=== PATIENT | female | born 1945 | race Caucasian/White ===

== ENCOUNTER 2016-09-14 12:19 | Outpatient (CLI) | payer MEDICARE, OTHER ==
[2016-09-14 14:55] LABS: #Basophils 0.1 thou/uL (0.0-0.2); #Eosinphils 0.2 thou/uL (0.0-0.7); #Lymphocytes 1.2 thou/uL (1.20-3.40); #Monocytes 0.3 thou/uL (0.11-0.59); #Neutrophils 5.8 thou/uL (1.40-6.50); %Basophils 0.7 % (0.0-1.0); %Eosinophils 2.8 % (0.0-10.0); %Lymphocytes 15.7 % (21.0-51.0); %Monocytes 3.8 % (0.0-10.0); Hematocrit 43.2 % (36.0-47.0); Mean Platelet Volume 6.5 fL (7.4-10.4); Red Blood Cell (RBC) Count 5.04 mill/uL (4.20-5.40); White Blood Cell (WBC) Count 7.6 thou/uL (4.8-10.8)
[2016-09-14 15:04] LABS: Calc. Creatinine Clearance 0 mL/min (70-130); Estimated GFR-MDRD 82
== END 2016-09-14 12:20 | disposition home or self-care (01) ==
LOC: NAV LABSP 12:19
PROVIDERS: ATTEND Family Medicine
DX: T25.321D Burn of third degree of right foot, subsequent encounter (principal); I25.119 Atherosclerotic heart disease of native coronary artery with unspecified angina pectoris
CPT/HCPCS: 82565; 85025; 85652; 86140

== ENCOUNTER 2016-09-19 15:51 | Outpatient (CLI) | payer MEDICARE, OTHER ==
[2016-09-19 17:30] LABS: ALT (SGPT) 25 U/L (0-55); AST (SGOT) 26 U/L (5-34); Alkaline Phosphatase 102 U/L (40-150); Anion Gap 17 mmol/L (10-20); BUN (Urea Nitrogen) 17 mg/dL (9.8-20.1); Bilirubin, Total 0.4 mg/dL (0.2-1.2); Calc. Creatinine Clearance 0 mL/min (70-130); Calcium 9.4 mg/dL (7.8-10.44); Carbon Dioxide 20 mmol/L (23-31); Chloride 109 mmol/L (98-107); Estimated GFR-MDRD 73; Globulin 3.2 g/dL (2.4-3.5); Protein, Total 7.3 g/dL (5.8-8.1)
== END 2016-09-19 15:52 | disposition home or self-care (01) ==
LOC: NAV LABSP 15:51
PROVIDERS: ATTEND Internal Medicine
DX: I25.119 Atherosclerotic heart disease of native coronary artery with unspecified angina pectoris (principal)
CPT/HCPCS: 80053

== ENCOUNTER 2016-10-16 06:12 | Emergency (ER) | payer MEDICARE, OTHER ==
[2016-10-16] MEDS ORDERED: Ketorolac Tromethamine 60 MG/2 ML VIAL ONE (06:41)
[2016-10-16] MEDS ORDERED: Acetaminophen 500 MG TAB ONE (07:17)
== END 2016-10-16 07:30 | disposition home or self-care (01) ==
LOC: NAV ERS 06:12
DX: M79.672 Pain in left foot (principal); I10 Essential (primary) hypertension; I25.10 Atherosclerotic heart disease of native coronary artery without angina pectoris; F32.9 Major depressive disorder, single episode, unspecified; F41.9 Anxiety disorder, unspecified; Z86.718 Personal history of other venous thrombosis and embolism; Z86.73 Personal history of transient ischemic attack (TIA), and cerebral infarction without residual deficits; Z79.82 Long term (current) use of aspirin; Z79.891 Long term (current) use of opiate analgesic; Z79.899 Other long term (current) drug therapy
CPT/HCPCS: 96372; J1885

== ENCOUNTER 2016-10-27 12:17 | Emergency (ER) | payer MEDICARE, OTHER ==
[2016-10-27 12:34] LABS: #Basophils 0.1 thou/uL (0.0-0.2); #Eosinphils 0.2 thou/uL (0.0-0.7); #Lymphocytes 0.9 thou/uL (1.20-3.40); #Monocytes 0.5 thou/uL (0.11-0.59); #Neutrophils 5.4 thou/uL (1.40-6.50); %Basophils 1.1 % (0.0-1.0); %Eosinophils 2.2 % (0.0-10.0); %Lymphocytes 12.3 % (21.0-51.0); %Monocytes 7.2 % (0.0-10.0); Hematocrit 45.4 % (36.0-47.0); Mean Platelet Volume 6.7 fL (7.4-10.4); Red Blood Cell (RBC) Count 5.28 mill/uL (4.20-5.40)
[2016-10-27 12:46] LABS: ALT (SGPT) 32 U/L (0-55); AST (SGOT) 21 U/L (5-34); Alkaline Phosphatase 104 U/L (40-150); Anion Gap 15 mmol/L (10-20); BUN (Urea Nitrogen) 16 mg/dL (9.8-20.1); Bilirubin, Total 0.6 mg/dL (0.2-1.2); Calc. Creatinine Clearance 0 mL/min (70-130); Calcium 9.3 mg/dL (7.8-10.44); Carbon Dioxide 22 mmol/L (23-31); Chloride 106 mmol/L (98-107); Estimated GFR-MDRD 72; Globulin 3.1 g/dL (2.4-3.5); Protein, Total 6.8 g/dL (5.8-8.1)
[2016-10-27 12:50] LABS: Troponin I Less than 0.010 ng/mL (< 0.028)
[2016-10-27 12:54] LABS: PTT 29.9 SEC (22.9-36.1); Prothrombin Time 12.6 SEC (12.0-14.7)
--- NOTE | 2016-10-27 13:25 | RAD ---
PORTABLE CHEST 1 VIEW: Date: 10/27/16 Time: 1300 hours HISTORY: Right facial droop, chest pain. FINDINGS/IMPRESSION: Comparison made with exam of 01/04/16. The heart size is enlarged. The aorta is tortuous. There is mild pulmonary vascular congestion witho ut confluent areas of consolidation, pneumothoraces, or large effusions. Right-sided AICD remains in place. POS: [facility]
[2016-10-27 13:48] LABS: Bilirubin Negative (Negative); Blood, Urine Negative (Negative); Glucose, Urine (Dipstick) 500 mg/dL (Negative); Ketone, Urine Negative (Negative); Nitrite Negative (Negative); Protein, Urine (Dipstick) Negative (Neg-Trace); Urobilinogen 0.2 mg/dL (0.2-1.0)
[2016-10-27] MEDS ORDERED: Nitroglycerin 2% Ointment 1 INCH/1 GM Packet ONE (14:04)
--- NOTE | 2016-10-30 08:01 | CT ---
EXAM: CT BRAIN WITHOUT CONTRAST: HISTORY: Left-sided weakness. Stroke alert. Symptoms began 30 minutes ago. COMPARISON: 12/26/15. TECHNIQUE: Noncontrast head CT is performed from the skull base to the skull vertex. FINDINGS: There are stable postsurgical changes involving the calvarium near the vertex. Underlying brain par enchyma demonstrates malacic change involving the left cerebrum. White matter hypodensities due to chronic small-vessel ischemic changes are noted. Stable configuration of the ventricular system. N o midline shift. Basilar cisterns are patent. No parenchymal hemorrhage. No extraaxial hematoma. Cortical tadeo-white matter differentiation is p reserved with the exception of the left cerebrum near the vertex. Adequate aeration of the mastoid air cells. There is left ethmoid air cell and sphenoid sinus mucos al thickening. Stable hypoattenuation involving the left cardiac nucleus as well as the white matte r anterior to the left caudate nucleus. Remote lacunar infarct involving the anterolateral right th alamus. IMPRESSION: No acute intracranial process. Results of the study discussed with Dr. Gerber Matthews 10/27/16 at 12:29 p.m. CODE CR POS: [facility]
== END 2016-10-27 17:17 | disposition short-term general hospital (02) ==
LOC: NAV ERS 12:17
DX: I11.0 Hypertensive heart disease with heart failure (principal); I50.9 Heart failure, unspecified; F32.9 Major depressive disorder, single episode, unspecified; F41.9 Anxiety disorder, unspecified; Z86.718 Personal history of other venous thrombosis and embolism; Z86.73 Personal history of transient ischemic attack (TIA), and cerebral infarction without residual deficits; Z79.82 Long term (current) use of aspirin; Z79.891 Long term (current) use of opiate analgesic; Z79.899 Other long term (current) drug therapy
CPT/HCPCS: 36415; 36416; 70450; 71010; 80053; 81003; 82553; 83880; 84484; 85025; 85610; 85730; 93005; A4353

== ENCOUNTER 2016-11-12 11:50 | Emergency (ER) | payer MEDICARE, OTHER ==
[2016-11-12] MEDS ORDERED: Lidocaine 1% 20 ML MDV ONE (12:27)
--- NOTE | 2016-11-12 13:35 | RAD ---
TOES RIGHT FOOT 3 VIEWS: Date: 11/12/16 HISTORY: laceration to toes FINDINGS: The metatarsals appear intact. There is mild DJD at the first MTP joint. Other MTP joints are unrema rkable. There is subluxation of the PIP joint of the fifth toe. No acute fracture identified. IMPRESSION: 1. Subluxation/mild dislocation at the PIP joint of the fifth toe. 2. No acute fracture identified. POS: [facility]
[2016-11-12] MEDS ORDERED: Adacel (T-DAP) 0.5 ML VIAL ONE (13:37)
== END 2016-11-12 13:53 | disposition home or self-care (01) ==
LOC: NAV ERS 11:50
DX: S91.201A Unspecified open wound of right great toe with damage to nail, initial encounter (principal); I25.10 Atherosclerotic heart disease of native coronary artery without angina pectoris; I10 Essential (primary) hypertension; F41.9 Anxiety disorder, unspecified; F32.9 Major depressive disorder, single episode, unspecified; Z79.82 Long term (current) use of aspirin; Z79.899 Other long term (current) drug therapy; X58.XXXA Exposure to other specified factors, initial encounter
CPT/HCPCS: 11750; 90471; 90715; J2001

== ENCOUNTER 2016-11-13 12:37 | Outpatient (CLI) | payer MEDICARE, OTHER ==
[2016-11-13 14:40] LABS: Bilirubin Negative (Negative); Blood, Urine Negative (Negative); Glucose, Urine (Dipstick) 100 mg/dL (Negative); Ketone, Urine Negative (Negative); Nitrite Negative (Negative); Protein, Urine (Dipstick) Negative (Neg-Trace); Urobilinogen 0.2 mg/dL (0.2-1.0)
[2016-11-13 14:47] LABS: Bacteria/HPF 3+ HPF (None Seen); RBC/HPF None Seen HPF (0-3)
== END 2016-11-13 12:38 | disposition home or self-care (01) ==
LOC: NAV LABSP 12:37
PROVIDERS: ATTEND Internal Medicine
DX: N39.0 Urinary tract infection, site not specified (principal)
CPT/HCPCS: 81001; 87077; 87086

== ENCOUNTER 2017-01-12 10:03 | Outpatient (CLI) | payer MEDICARE, OTHER ==
[2017-01-12 11:53] LABS: Blood, Urine Small (Negative); Clarity Clear (Clear); Glucose, Urine (Dipstick) 500 mg/dL (Negative); Leukocyte Negative (Negative); Nitrite Positive (Negative); Protein, Urine (Dipstick) 30 mg/dL (Neg-Trace); Specific Gravity, Urine 1.025 (1.005-1.030); Urobilinogen 0.2 mg/dL (0.2-1.0); pH, Urine 5.5 (5.0-9.0)
[2017-01-12 12:17] LABS: Bilirubin Negative (Negative); Icto Negative (Negative)
[2017-01-12 12:19] LABS: Bacteria/HPF 1+ HPF (None Seen); Other Microscopic Description NO; RBC/HPF 0-3 HPF (0-3); Squamous Epithelial 0-3 HPF (0-3); WBC/HPF 0-3 HPF (0-3)
== END 2017-01-12 10:04 | disposition home or self-care (01) ==
LOC: NAV LABSP 10:03
PROVIDERS: ATTEND Internal Medicine
DX: N39.0 Urinary tract infection, site not specified (principal)
CPT/HCPCS: 81001; 87077; 87086; 87186

== ENCOUNTER 2017-05-02 12:05 | Outpatient (CLI) | payer MEDICARE, OTHER ==
[2017-05-02 13:08] LABS: Bilirubin Negative (Negative); Blood, Urine Small (Negative); Clarity Cloudy (Clear); Glucose, Urine (Dipstick) >=1000 mg/dL (Negative); Leukocyte Small (Negative); Nitrite Negative (Negative); Protein, Urine (Dipstick) Negative (Neg-Trace); Urobilinogen 0.2 mg/dL (0.2-1.0); pH, Urine 5.5 (5.0-9.0)
[2017-05-02 13:15] LABS: Bacteria/HPF 2+ HPF (None Seen); Squamous Epithelial 0-3 HPF (0-3)
== END 2017-05-02 12:06 | disposition home or self-care (01) ==
LOC: NAV LABSP 12:05
PROVIDERS: ATTEND Internal Medicine
DX: N39.0 Urinary tract infection, site not specified (principal)
CPT/HCPCS: 81001; 87077; 87086; 87186

== ENCOUNTER 2017-07-02 12:28 | Outpatient (CLI) | payer MEDICARE, OTHER ==
--- NOTE | 2017-07-02 16:01 | RAD ---
RIGHT SHOULDER THREE VIEWS: History: 71-year-old female with right shoulder pain. Comparison: 09-23-15 FINDINGS: Stable deformity of the humeral neck, evidence for a prior fracture. Several ossific foci probably w ithin the axillary pouch region of the joint. These are most consistent with synovial osteochondroma . They appear to be slightly larger than on the prior 2016 study. No acute fracture or dislocation. IMPRESSION: Degenerative changes without fracture or dislocation. Deformity of the humeral neck probably related to old trauma. 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 No acute process. POS: [facility]
== END 2017-07-02 12:29 | disposition home or self-care (01) ==
LOC: NAV RAD 12:28
PROVIDERS: ATTEND Physical Medicine & Rehabilitation
DX: M25.511 Pain in right shoulder (principal); M19.90 Unspecified osteoarthritis, unspecified site; D21.9 Benign neoplasm of connective and other soft tissue, unspecified

== ENCOUNTER 2017-11-08 11:55 | Emergency (ER) | payer MEDICARE ==
[2017-11-08 12:16] LABS: #Basophils 0.1 thou/uL (0.0-0.2); #Eosinphils 0.2 thou/uL (0.0-0.7); #Lymphocytes 0.9 thou/uL (1.20-3.40); #Monocytes 0.5 thou/uL (0.11-0.59); %Basophils 0.8 % (0.0-1.0); %Eosinophils 2.1 % (0.0-10.0); %Lymphocytes 12.3 % (21.0-51.0); %Neutrophils 78.8 % (42.0-75.0); Hemoglobin 14.2 g/dL (12.0-16.0); Mean Corpuscular HGB CONC 33.1 g/dL (32.0-36.0); Mean Corpuscular Hemoglobin 26.9 pg (27.0-31.0); Mean Corpuscular Volume 81.3 fl (81.0-99.0); Mean Platelet Volume 9.4 fL (7.4-10.4); Platelet Count 174 thou/uL (130-400); RBC Distribution Width 14.2 % (11.5-14.5); Red Blood Cell (RBC) Count 5.27 mill/uL (4.20-5.40); White Blood Cell (WBC) Count 7.6 thou/uL (4.8-10.8)
[2017-11-08 12:29] LABS: Troponin I Less than 0.010 ng/mL (< 0.028)
[2017-11-08 12:30] LABS: ALT (SGPT) 28 U/L (8-55); AST (SGOT) 24 U/L (5-34); Alkaline Phosphatase 100 U/L (40-150); Anion Gap 14 mmol/L (10-20); BUN (Urea Nitrogen) 14 mg/dL (9.8-20.1); Bilirubin, Total 0.4 mg/dL (0.2-1.2); Calc. Creatinine Clearance 0 mL/min (70-130); Calcium 9.5 mg/dL (7.8-10.44); Carbon Dioxide 25 mmol/L (23-31); Chloride 108 mmol/L (98-107); Estimated GFR-MDRD 66; Globulin 2.8 g/dL (2.4-3.5); Glucose 79 mg/dL (83-110); Potassium 4.2 mmol/L (3.5-5.1); Protein, Total 6.8 g/dL (6.0-8.3); Sodium 143 mmol/L (136-145)
[2017-11-08 12:35] LABS: CKMB 8.5 ng/mL (0-6.6)
[2017-11-08 12:44] LABS: Bilirubin Negative (Negative); Blood, Urine Negative (Negative); Clarity Clear (Clear); Glucose, Urine (Dipstick) 500 mg/dL (Negative); Leukocyte Trace (Negative); Nitrite Negative (Negative); Protein, Urine (Dipstick) Negative (Neg-Trace); Urobilinogen 0.2 mg/dL (0.2-1.0)
[2017-11-08 12:56] LABS: Bacteria/HPF 3+ HPF (None Seen); RBC/HPF 0-3 HPF (0-3); Squamous Epithelial 0-3 HPF (0-3)
[2017-11-08 12:57] LABS: Amphetamine Not Detected (NotDetected); Barbiturates Screen Not Detected (NotDetected); Benzodiazepine Screen Not Detected (NotDetected); Cocaine Metabolite Screen Not Detected (NotDetected); Medtox Control Line Valid? VALID (VALID); Methadone Not Detected (NotDetected); Methamphetamine Not Detected (NotDetected); Opiate Screen Not Detected (NotDetected); Oxycodone Screen Not Detected (NotDetected); Phencyclidine (PCP) Not Detected (NotDetected); THC/Cannabinoid Screen Not Detected (NotDetected); Tricyclic Screen Not Detected (NotDetected)
--- NOTE | 2017-11-08 13:09 | RAD ---
PORTABLE CHEST 1 VIEW: Date: 11/08/17 Time: 1219 hours HISTORY: Chest pain. FINDINGS/IMPRESSION: Comparison made with exam of 02/15/17. Right-sided pacemaker device remains in place. The heart is enlarged. There is mild prominence of pul monary vascularity. No lobar consolidation, pneumothoraces, or large effusions are seen. POS: [facility]
--- NOTE | 2017-11-08 13:54 | CT ---
CT BRAIN WITHOUT CONTRAST: HISTORY: Stroke protocol, weakness all over. FINDINGS: Comparison is made with the exam of 02/16/17. Encephalomalacia in the left frontoparietal lobe with adjacent postop changes in the calvarium, stabl e hypodensity in the anterior left lentiform nucleus, changes of chronic small-vessel ischemic diseas e are stable. Ventricular size is stable and the basilar cisterns are patent. No evidence of acute infarct, midline shift, or abnormal extraaxial fluid collections is seen. There is mucosal disease i n the left posterior ethmoid and left sphenoid sinuses. IMPRESSION: Stable exam. No CT evidence of acute intracranial process. Discussed over the telephone with ER physician, Dr. Doni Ash, at 12:15 p.m. CODE CR POS: [facility]
[2017-11-08] MEDS ORDERED: Dextrose 5 % And 0.9 % NaCl 1,000 ML ONE (14:28)
== END 2017-11-08 15:08 | disposition short-term general hospital (02) ==
LOC: NAV ERS 11:55
DX: R41.82 Altered mental status, unspecified (principal); R53.1 Weakness; G89.29 Other chronic pain; M54.9 Dorsalgia, unspecified; I10 Essential (primary) hypertension; G40.909 Epilepsy, unspecified, not intractable, without status epilepticus; F41.9 Anxiety disorder, unspecified; F32.9 Major depressive disorder, single episode, unspecified; Z79.82 Long term (current) use of aspirin; Z79.899 Other long term (current) drug therapy; Z86.73 Personal history of transient ischemic attack (TIA), and cerebral infarction without residual deficits
CPT/HCPCS: 36416; 51702; 70450; 71045; 80053; 80306; 81003; 81015; 82553; 83880; 84484; 85025; 85379; 93005; 96360; A4353; J7042

== ENCOUNTER 2017-11-19 11:13 | Emergency (ER) | payer MEDICARE ==
--- NOTE | 2017-11-19 13:09 | RAD ---
RIGHT HAND 3 VIEWS: HISTORY: Bruise over the 3rd, 4th, and 5th metatarsal. Pain. COMPARISON: None. FINDINGS: There is dorsal soft tissue swelling. No evidence of fracture. 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 IMPRESSION: Soft tissue swelling, without evidence of fracture. POS: [facility]
== END 2017-11-19 13:10 | disposition home or self-care (01) ==
LOC: NAV ERS 11:13
DX: S60.221A Contusion of right hand, initial encounter (principal); I25.10 Atherosclerotic heart disease of native coronary artery without angina pectoris; I10 Essential (primary) hypertension; I69.351 Hemiplegia and hemiparesis following cerebral infarction affecting right dominant side; F41.9 Anxiety disorder, unspecified; F32.9 Major depressive disorder, single episode, unspecified; G62.9 Polyneuropathy, unspecified; Z79.82 Long term (current) use of aspirin; Z79.899 Other long term (current) drug therapy; Z79.02 Long term (current) use of antithrombotics/antiplatelets; W22.8XXA Striking against or struck by other objects, initial encounter

== ENCOUNTER 2018-01-21 12:01 | Emergency (ER) | payer MEDICARE ==
[2018-01-21] MEDS ORDERED: traMADol HCl 50 MG TAB ONE (12:52)
[2018-01-21] MEDS ORDERED: Ondansetron ODT 4 MG TAB ONE (12:55)
--- NOTE | 2018-01-21 14:11 | CT ---
CT HEAD NONCONTRAST: HISTORY: Fall, headache. COMPARISON: 11/08/17. FINDINGS: There is prominence of the ventricular system, stable. Stable postsurgical changes of the calvarium are seen. Multifocal white matter hypodensity remains, similar in appearance. There is no intracran ial hemorrhage, mass effect, or new midline shift. IMPRESSION: Stable-appearing noncontrast head CT exam, without acute intracranial hemorrhage or mass effect evide nt. POS: [facility]
--- NOTE | 2018-01-21 14:21 | CT ---
NONCONTRAST CT CERVICAL SPINE: DATE: 01/21/18. HISTORY: Headache after falling 3 days ago. Head and neck injury. COMPARISON: 03/11/13. FINDINGS: Again noted are hypodense nodules within the right lobe of the thyroid gland with associated calcific ations again seen in the right lobe of the thyroid gland. Vascular calcifications are seen in the carotid arteries. Prevertebral soft tissues are within normal limits. Multilevel degenerative changes are seen in the cervical spine. There is trace anterolisthesis of C6 on C7 which is an interval change from the prior study, but these findings are probably related to p rominent facet degenerative changes at this level. No additional level of subluxation is seen. Ther e is no evidence of a fracture. Prominent facet degenerative changes are seen at multiple levels. There is severe right-sided neural foraminal narrowing at the C4-5 level and severe left-sided neural foraminal narrowing at the C5-6 l evel related to posterior osteophyte formation and facet degenerative changes. Lung apices are clear aside from mild volume loss. Cardiac pace making as well as AICD leads are par tially imaged in the region of the right subclavian vein. There is mucosal thickening with almost complete opacification of the left maxillary antrum. Increas ed density is seen within the region of the opacification probably related to either inspissated secr etions or fungal infection. Mastoid air cells are clear. IMPRESSION: 1. Multilevel degenerative changes seen throughout the cervical spine which have progressed from the prior study in 2013. No acute fracture visualized. 2. Trace anterolisthesis of C6 on C7 likely attributable to the facet degenerative changes at this l evel. 3. Hypodense nodules right lobe of the thyroid gland with associated calcifications. This was also present on the prior study in 2012. 4. Degenerative changes involving the temporomandibular joints bilaterally. POS: [facility]
--- NOTE | 2018-01-21 14:52 | RAD ---
3 VIEWS RIGHT SHOULDER: Date: 01/21/18 HISTORY: Pain. Injury. COMPARISON: 07/02/17. FINDINGS: Stable loose body fragments. Stable degenerative change. No fracture. No dislocation. Evidence of rem ote injury in the humeral neck. IMPRESSION: 1. Stable degenerative changes without fracture or dislocation. Synovial osteochondroma unchanged. 2. Chronic changes involving the right humeral neck are noted. POS: [facility]
== END 2018-01-21 13:53 | disposition home or self-care (01) ==
LOC: NAV ERS 12:01
DX: S16.1XXA Strain of muscle, fascia and tendon at neck level, initial encounter (principal); S00.03XA Contusion of scalp, initial encounter; S40.011A Contusion of right shoulder, initial encounter; I25.10 Atherosclerotic heart disease of native coronary artery without angina pectoris; I10 Essential (primary) hypertension; Z86.73 Personal history of transient ischemic attack (TIA), and cerebral infarction without residual deficits; F41.9 Anxiety disorder, unspecified; F32.9 Major depressive disorder, single episode, unspecified; Z79.82 Long term (current) use of aspirin; Z79.899 Other long term (current) drug therapy; W19.XXXA Unspecified fall, initial encounter
CPT/HCPCS: 70450; 72125; Q0162

== ENCOUNTER 2018-03-25 10:07 | Emergency (ER) | payer MEDICARE ==
[2018-03-25 11:43] LABS: Prothrombin Time 13.3 SEC (12.0-14.7)
[2018-03-25 11:46] LABS: #Basophils 0.1 thou/uL (0.0-0.2); #Eosinphils 0.2 thou/uL (0.0-0.7); #Lymphocytes 0.9 thou/uL (1.20-3.40); #Monocytes 0.5 thou/uL (0.11-0.59); #Neutrophils 4.8 thou/uL (1.40-6.50); %Basophils 1.4 % (0.0-1.0); %Eosinophils 3.1 % (0.0-10.0); %Lymphocytes 13.5 % (21.0-51.0); %Monocytes 7.5 % (0.0-10.0); %Neutrophils 74.6 % (42.0-75.0); Hemoglobin 13.3 g/dL (12.0-16.0); Mean Corpuscular HGB CONC 32.6 g/dL (32.0-36.0); Mean Corpuscular Hemoglobin 26.8 pg (27.0-31.0); Mean Corpuscular Volume 82.3 fL (78.0-98.0); Mean Platelet Volume 7.1 fL (7.4-10.4); Platelet Count 196 thou/uL (130-400); Red Blood Cell (RBC) Count 4.97 mill/uL (4.20-5.40); White Blood Cell (WBC) Count 6.4 thou/uL (4.8-10.8)
[2018-03-25 11:49] LABS: Bilirubin Negative (Negative); Blood, Urine Negative (Negative); Clarity Clear (Clear); Glucose, Urine (Dipstick) 500 mg/dL (Negative); Leukocyte Negative (Negative); Nitrite Negative (Negative); Protein, Urine (Dipstick) Negative (Neg-Trace); Urobilinogen 0.2 mg/dL (0.2-1.0); pH, Urine 5.5 (5.0-9.0)
[2018-03-25 11:50] LABS: Specific Gravity, Urine 1.033 (1.002-1.036)
[2018-03-25 11:51] LABS: ALT (SGPT) 37 U/L (8-55); AST (SGOT) 24 U/L (5-34); Albumin 3.9 g/dL (3.4-4.8); Alkaline Phosphatase 105 U/L (40-150); Anion Gap 15 mmol/L (10-20); BUN (Urea Nitrogen) 12 mg/dL (9.8-20.1); Bilirubin, Total 0.3 mg/dL (0.2-1.2); Calc. Creatinine Clearance 0 mL/min (70-130); Calcium 9.7 mg/dL (7.8-10.44); Carbon Dioxide 22 mmol/L (23-31); Chloride 109 mmol/L (98-107); Estimated GFR-MDRD 81; Globulin 2.8 g/dL (2.4-3.5); Glucose 83 mg/dL (83-110); Potassium 3.9 mmol/L (3.5-5.1); Protein, Total 6.7 g/dL (6.0-8.3); Sodium 142 mmol/L (136-145)
[2018-03-25 11:52] LABS: PTT 32.6 SEC (22.9-36.1)
== END 2018-03-25 12:20 | disposition home or self-care (01) ==
LOC: NAV ERS 10:07
DX: K92.2 Gastrointestinal hemorrhage, unspecified (principal); I10 Essential (primary) hypertension; F32.9 Major depressive disorder, single episode, unspecified; F41.9 Anxiety disorder, unspecified; Z79.899 Other long term (current) drug therapy
CPT/HCPCS: 51701; 80053; 81003; 82274; 85025; 85610; 85730; A4353

== ENCOUNTER 2018-07-07 10:32 | Emergency (ER) | payer MEDICARE | END 2018-07-07 11:30 | disposition home or self-care (01) | LOC: NAV ERS 10:32 | DX: S81.011A Laceration without foreign body, right knee, initial encounter (principal); I10 Essential (primary) hypertension; F41.9 Anxiety disorder, unspecified; I25.10 Atherosclerotic heart disease of native coronary artery without angina pectoris; F32.9 Major depressive disorder, single episode, unspecified; X58.XXXA Exposure to other specified factors, initial encounter | CPT/HCPCS: 12001 ==

== ENCOUNTER 2018-07-16 13:43 | Emergency (ER) | payer MEDICARE ==
[2018-07-16 14:22] LABS: #Basophils 0.1 thou/uL (0.0-0.2); #Eosinphils 0.1 thou/uL (0.0-0.7); #Monocytes 0.4 thou/uL (0.11-0.59); #Neutrophils 4.6 thou/uL (1.40-6.50); %Basophils 0.9 % (0.0-1.0); %Eosinophils 2.3 % (0.0-10.0); %Lymphocytes 16.1 % (21.0-51.0); %Monocytes 6.9 % (0.0-10.0); %Neutrophils 73.9 % (42.0-75.0); Hemoglobin 13.6 g/dL (12.0-16.0); Mean Corpuscular HGB CONC 31.2 g/dL (32.0-36.0); Mean Corpuscular Hemoglobin 26.7 pg (27.0-31.0); Mean Corpuscular Volume 85.6 fL (78.0-98.0); Mean Platelet Volume 7.2 fL (7.4-10.4); Platelet Count 215 thou/uL (130-400); RBC Distribution Width 14.2 % (11.5-14.5); Red Blood Cell (RBC) Count 5.07 mill/uL (4.20-5.40); White Blood Cell (WBC) Count 6.2 thou/uL (4.8-10.8)
[2018-07-16 14:36] LABS: ALT (SGPT) 23 U/L (8-55); AST (SGOT) 25 U/L (5-34); Albumin 4.2 g/dL (3.4-4.8); Alkaline Phosphatase 114 U/L (40-150); Anion Gap 15 mmol/L (10-20); BUN (Urea Nitrogen) 14 mg/dL (9.8-20.1); Bilirubin, Total 0.4 mg/dL (0.2-1.2); Calc. Creatinine Clearance 0 mL/min (70-130); Calcium 9.9 mg/dL (7.8-10.44); Carbon Dioxide 23 mmol/L (23-31); Chloride 110 mmol/L (98-107); Estimated GFR-MDRD 69; Globulin 2.8 g/dL (2.4-3.5); Glucose 115 mg/dL (83-110); Potassium 4.2 mmol/L (3.5-5.1); Sodium 144 mmol/L (136-145)
[2018-07-16 14:38] LABS: Troponin I Less than 0.010 ng/mL (< 0.028)
[2018-07-16 14:40] LABS: Bilirubin Negative (Negative); Blood, Urine Negative (Negative); Clarity Clear (Clear); Glucose, Urine (Dipstick) >=1000 mg/dL (Negative); Leukocyte Negative (Negative); Nitrite Negative (Negative); Protein, Urine (Dipstick) Negative (Neg-Trace); Specific Gravity, Urine 1.015 (1.005-1.030); Urobilinogen 0.2 mg/dL (0.2-1.0); pH, Urine 5.5 (5.0-9.0)
[2018-07-16] MEDS ORDERED: traMADol HCl 50 MG TAB ONE (14:50)
== END 2018-07-16 16:41 | disposition home or self-care (01) ==
LOC: NAV ERS 13:43
DX: R56.9 Unspecified convulsions (principal); I25.10 Atherosclerotic heart disease of native coronary artery without angina pectoris; I10 Essential (primary) hypertension; F41.9 Anxiety disorder, unspecified; F32.9 Major depressive disorder, single episode, unspecified; Z86.73 Personal history of transient ischemic attack (TIA), and cerebral infarction without residual deficits; Z86.718 Personal history of other venous thrombosis and embolism; Z79.82 Long term (current) use of aspirin; Z79.899 Other long term (current) drug therapy
CPT/HCPCS: 51701; 80053; 81003; 82553; 84484; 85025; A4353

== ENCOUNTER 2018-08-31 11:50 | Emergency (ER) | payer MEDICARE ==
[2018-08-31] MEDS ORDERED: traMADol HCl 50 MG TAB ONE (12:11)
--- NOTE | 2018-08-31 14:32 | RAD ---
RIGHT HIP 2 VIEWS: HISTORY: Right hip pain. FINDINGS: Total hip prosthesis is in place. NO perihardware lucency. No acute fracture or dislocation. IMPRESSION: Right hip prosthesis. No acute osseous abnormalities are demonstrated. POS: [facility]
--- NOTE | 2018-08-31 14:57 | RAD ---
RIGHT KNEE 4 VIEWS: HISTORY: Right knee pain. FINDINGS: Total knee prosthesis is in place. No perihardware lucency. Osseous structures are demineralized. No acute fracture, dislocation, or fluid distention of the suprapatellar bursa. Calcification overli es the arterial structures. IMPRESSION: 1. Right knee prosthesis. No acute osseous abnormalities are demonstrated. 2. Osteoporosis. 3. Atherosclerosis. POS: [facility]
== END 2018-08-31 14:03 | disposition home or self-care (01) ==
LOC: NAV ERS 11:50
DX: S80.01XA Contusion of right knee, initial encounter (principal); F41.9 Anxiety disorder, unspecified; F32.9 Major depressive disorder, single episode, unspecified; I25.10 Atherosclerotic heart disease of native coronary artery without angina pectoris; I10 Essential (primary) hypertension; Z86.73 Personal history of transient ischemic attack (TIA), and cerebral infarction without residual deficits; Z86.718 Personal history of other venous thrombosis and embolism; Z79.82 Long term (current) use of aspirin; Z79.899 Other long term (current) drug therapy; W19.XXXA Unspecified fall, initial encounter

== ENCOUNTER 2018-12-19 16:25 | Outpatient (CLI) | payer MEDICARE ==
[2018-12-19 21:34] LABS: Bilirubin Negative (Negative); Blood, Urine Negative (Negative); Clarity CLEAR (Clear); Glucose, Urine (Dipstick) 500 mg/dL (Negative); Leukocyte Trace (Negative); Nitrite Negative (Negative); Protein, Urine (Dipstick) Negative (Neg-Trace); Specific Gravity, Urine 1.012 (1.002-1.036); Urobilinogen 0.2 mg/dL (0.2-1.0); pH, Urine 5.5 (5.0-9.0)
[2018-12-19 22:00] LABS: Bacteria/HPF None Seen HPF (None Seen); Hyaline Casts/LPF 0-3 HYALINE CAST LPF (0-3 Hyaline); RBC/HPF 0-3 HPF (0-3); Squamous Epithelial 0-3 HPF (0-3)
== END 2018-12-19 16:26 | disposition home or self-care (01) ==
LOC: NAV LAB 16:25
PROVIDERS: ATTEND Internal Medicine
DX: I11.0 Hypertensive heart disease with heart failure (principal); I50.9 Heart failure, unspecified
CPT/HCPCS: 81003; 81015

== ENCOUNTER 2020-03-06 13:43 | Emergency (ER) | payer MEDICARE ==
[2020-03-06 13:57] LABS: #Basophils 0.1 thou/uL (0.0-0.2); #Eosinphils 0.2 thou/uL (0.0-0.7); #Lymphocytes 1.2 thou/uL (1.20-3.40); #Monocytes 0.5 thou/uL (0.11-0.59); %Basophils 0.7 % (0.0-1.0); %Eosinophils 2.7 % (0.0-10.0); %Lymphocytes 15.1 % (21.0-51.0); %Monocytes 6.3 % (0.0-10.0); %Neutrophils 75.2 % (42.0-75.0); Hemoglobin 14.1 g/dL (12.0-16.0); Mean Corpuscular HGB CONC 31.4 g/dL (32.0-36.0); Mean Corpuscular Hemoglobin 27.4 pg (27.0-31.0); Mean Corpuscular Volume 87.4 fL (78.0-98.0); Mean Platelet Volume 6.9 fL (7.4-10.4); Platelet Count 217 thou/uL (130-400); RBC Distribution Width 12.9 % (11.5-14.5); Red Blood Cell (RBC) Count 5.12 mill/uL (4.20-5.40)
[2020-03-06 14:06] LABS: PTT 32.6 sec (22.9-36.1); Prothrombin Time 13.4 sec (12.0-14.7)
[2020-03-06 14:14] LABS: ALT (SGPT) 28 U/L (8-55); AST (SGOT) 25 U/L (5-34); Albumin 3.9 g/dL (3.4-4.8); Alkaline Phosphatase 155 U/L (40-110); Anion Gap 19 mmol/L (10-20); BUN (Urea Nitrogen) 15 mg/dL (9.8-20.1); Bilirubin, Total 0.3 mg/dL (0.2-1.2); Calc. Creatinine Clearance 0 mL/min (70-130); Calcium 9.1 mg/dL (7.8-10.44); Carbon Dioxide 21 mmol/L (23-31); Chloride 104 mmol/L (98-107); Estimated GFR-MDRD 50; Glucose 108 mg/dL (83-110); Potassium 4.2 mmol/L (3.5-5.1); Protein, Total 6.9 g/dL (6.0-8.3); Sodium 140 mmol/L (136-145)
--- NOTE | 2020-03-06 15:19 | CT ---
CT BRAIN 03/06/20 PROVIDED CLINICAL HISTORY: Altered mental status, slurred speech. FINDINGS: Comparison 02/16/17. The ventricular system is unchanged in size and morphology, somewhat conspicuous in terms of size wit h a degree of sulcal prominence. Encephalomalacia involving the left frontoparietal region near the v ertex with associated postoperative change involving the adjacent skull redemonstrated. Chronic micro vascular ischemic changes appear similar to prior. There is no intracranial hemorrhage or mass effect apparent. Partial opacification of the sphenoid sinus. The extracranial soft tissues and osseous str uctures appear otherwise unremarkable. IMPRESSION: No evidence for intracranial hemorrhage or mass effect. Findings communicated to Dr. Herring via telep sonia [id number], 03/06/20. POS: [facility]
[2020-03-06] MEDS ORDERED: Lorazepam 2 MG/ML VIAL ONE (15:52)
== END 2020-03-06 16:33 | disposition short-term general hospital (02) ==
LOC: NAV ERS 13:43
DX: R41.82 Altered mental status, unspecified (principal); R47.81 Slurred speech; Z86.73 Personal history of transient ischemic attack (TIA), and cerebral infarction without residual deficits; G62.9 Polyneuropathy, unspecified; I10 Essential (primary) hypertension; F32.9 Major depressive disorder, single episode, unspecified; F41.9 Anxiety disorder, unspecified; Z79.82 Long term (current) use of aspirin; Z79.899 Other long term (current) drug therapy
CPT/HCPCS: 70450; 80053; 84484; 85025; 85610; 85730; 93005; 94760; 96374; J2060

== ENCOUNTER 2020-04-04 15:15 | Emergency (ER) | payer MEDICARE, OTHER ==
[2020-04-04] MEDS ORDERED: Sodium Chloride 0.9% 500 ML ONE (15:38)
[2020-04-04 15:58] LABS: #Basophils 0.1 thou/uL (0.0-0.2); #Eosinphils 0.2 thou/uL (0.0-0.7); #Lymphocytes 1.2 thou/uL (1.20-3.40); #Monocytes 0.5 thou/uL (0.11-0.59); #Neutrophils 4.6 thou/uL (1.40-6.50); %Basophils 1.1 % (0.0-1.0); %Eosinophils 2.6 % (0.0-10.0); %Lymphocytes 18.3 % (21.0-51.0); %Monocytes 7.4 % (0.0-10.0); %Neutrophils 70.7 % (42.0-75.0); Hemoglobin 14.3 g/dL (12.0-16.0); Mean Corpuscular HGB CONC 31.2 g/dL (32.0-36.0); Mean Corpuscular Hemoglobin 27.7 pg (27.0-31.0); Mean Corpuscular Volume 88.7 fL (78.0-98.0); Mean Platelet Volume 7.7 fL (7.4-10.4); Platelet Count 229 thou/uL (130-400); RBC Distribution Width 12.8 % (11.5-14.5); Red Blood Cell (RBC) Count 5.17 mill/uL (4.20-5.40); White Blood Cell (WBC) Count 6.5 thou/uL (4.8-10.8)
[2020-04-04] MEDS ORDERED: Ondansetron PF 4 MG/2 ML Vial ONE (16:11)
[2020-04-04 16:28] LABS: ALT (SGPT) 26 U/L (8-55); AST (SGOT) 17 U/L (5-34); Alkaline Phosphatase 146 U/L (40-110); Anion Gap 16 mmol/L (10-20); BUN (Urea Nitrogen) 18 mg/dL (9.8-20.1); Bilirubin, Total 0.2 mg/dL (0.2-1.2); CK (CPK) 28 U/L (29-168); Calc. Creatinine Clearance 0 mL/min (70-130); Calcium 9.1 mg/dL (7.8-10.44); Carbon Dioxide 24 mmol/L (23-31); Chloride 108 mmol/L (98-107); Estimated GFR-MDRD 67; Globulin 2.9 g/dL (2.4-3.5); Glucose 119 mg/dL (83-110); Protein, Total 6.9 g/dL (6.0-8.3); Sodium 144 mmol/L (136-145)
[2020-04-04 16:29] LABS: Bilirubin Negative (Negative); Blood, Urine Trace (Negative); Clarity Clear (Clear); Glucose, Urine (Dipstick) 500 mg/dL (Negative); Ketone, Urine Negative (Negative); Leukocyte Negative (Negative); Nitrite Negative (Negative); Protein, Urine (Dipstick) Negative (Neg-Trace); Specific Gravity, Urine 1.015 (1.005-1.030); Urobilinogen 0.2 mg/dL (Less than 2); pH, Urine 6.5 (5.0-9.0)
[2020-04-04 16:36] LABS: RBC/HPF 0-3 HPF (0-3)
[2020-04-06 15:02] LABS: SARS-CoV-2 MS2 Positive; SARS-CoV-2 N Gene Negative; SARS-CoV-2 S Gene Negative; SARS-CoV-2 by NAA Not Detected (NotDetected); SARS-CoV-2 orf1ab Negative
== END 2020-04-04 17:41 | disposition home or self-care (01) ==
LOC: NAV ERS 15:15
DX: M79.10 Myalgia, unspecified site (principal); Z20.828 Contact with and (suspected) exposure to other viral communicable diseases; I25.10 Atherosclerotic heart disease of native coronary artery without angina pectoris; F41.9 Anxiety disorder, unspecified; F32.9 Major depressive disorder, single episode, unspecified; I10 Essential (primary) hypertension; Z86.73 Personal history of transient ischemic attack (TIA), and cerebral infarction without residual deficits; Z79.899 Other long term (current) drug therapy; Z79.891 Long term (current) use of opiate analgesic; Z79.82 Long term (current) use of aspirin; Z86.718 Personal history of other venous thrombosis and embolism
CPT/HCPCS: 51701; 80053; 81003; 81015; 82550; 84484; 85025; 87086; 87635; 96374; J2405; J7030; U0003

== ENCOUNTER 2020-07-28 15:28 | Emergency (ER) | payer MEDICARE ==
[2020-07-28] MEDS ORDERED: Ketorolac Tromethamine 30 MG/ML VIAL ONE (16:01)
[2020-07-28] MEDS ORDERED: traMADol HCl 50 MG TAB ONE (16:11)
--- NOTE | 2020-07-28 16:31 | RAD ---
XR Foot Lt 3 View STANDARD HISTORY: left foot pain FINDINGS: Bones are osteopenic. Degenerative changes are present. The subtalar joint is narrowed and deformed. A plantar calcaneal spur is present. No acute fracture or dislocation is seen.
== END 2020-07-28 17:05 | disposition home or self-care (01) ==
LOC: NAV ERS 15:28
DX: M79.672 Pain in left foot (principal); F41.9 Anxiety disorder, unspecified; F32.9 Major depressive disorder, single episode, unspecified; Z79.82 Long term (current) use of aspirin; Z79.899 Other long term (current) drug therapy; Z86.718 Personal history of other venous thrombosis and embolism
CPT/HCPCS: J1885

== ENCOUNTER 2020-08-18 12:37 | Emergency (ER) | payer MEDICARE ==
[2020-08-18 13:59] LABS: Bilirubin Negative (Negative); Blood, Urine Negative (Negative); Clarity Clear (Clear); Glucose, Urine (Dipstick) 500 mg/dL (Negative); Ketone, Urine Negative (Negative); Leukocyte Trace (Negative); Nitrite Negative (Negative); Protein, Urine (Dipstick) Negative (Neg-Trace); Specific Gravity, Urine 1.015 (1.005-1.030); Urobilinogen 0.2 mg/dL (Less than 2); pH, Urine 7.5 (5.0-9.0)
[2020-08-18 14:08] LABS: Bacteria/HPF 1+ HPF (None Seen); RBC/HPF 0-3 HPF (0-3); Squamous Epithelial 0-3 HPF (0-3); WBC/HPF 21-50 HPF (0-3)
== END 2020-08-18 14:28 | disposition home or self-care (01) ==
LOC: NAV ERS 12:37
DX: N39.0 Urinary tract infection, site not specified (principal); I25.10 Atherosclerotic heart disease of native coronary artery without angina pectoris; I10 Essential (primary) hypertension; Z86.718 Personal history of other venous thrombosis and embolism; Z79.899 Other long term (current) drug therapy; Z79.82 Long term (current) use of aspirin; Z86.73 Personal history of transient ischemic attack (TIA), and cerebral infarction without residual deficits
CPT/HCPCS: 51701; 81003; 81015; 87077; 87086; 87186

== ENCOUNTER 2021-05-01 10:03 | Emergency (ER) | payer MEDICARE ==
[2021-05-01 11:10] LABS: Bilirubin Negative (Negative); Blood, Urine Negative (Negative); Glucose, Urine (Dipstick) >=1000 mg/dL (Negative); Ketone, Urine Negative (Negative); Leukocyte Negative (Negative); Nitrite Negative (Negative); Protein, Urine (Dipstick) Negative (Neg-Trace); Urobilinogen 0.2 mg/dL (Less than 2); pH, Urine 5.5 (5.0-9.0)
[2021-05-01 11:15] LABS: Clarity SL HAZY (Clear)
== END 2021-05-01 12:12 | disposition home or self-care (01) ==
LOC: NAV ERS 10:03
DX: N76.0 Acute vaginitis (principal); I10 Essential (primary) hypertension; Z79.899 Other long term (current) drug therapy; Z79.82 Long term (current) use of aspirin
CPT/HCPCS: 51701; 81003; 87086

== ENCOUNTER 2021-06-12 07:58 | Emergency (ER) | payer MEDICARE ==
[2021-06-12 08:54] LABS: #Basophils 0.1 thou/uL (0.0-0.2); #Eosinphils 0.2 thou/uL (0.0-0.7); #Lymphocytes 1.1 thou/uL (1.20-3.40); #Monocytes 0.4 thou/uL (0.11-0.59); #Neutrophils 4.1 thou/uL (1.40-6.50); %Basophils 0.9 % (0.0-1.0); %Eosinophils 3.6 % (0.0-10.0); %Lymphocytes 18.8 % (21.0-51.0); %Monocytes 7.3 % (0.0-10.0); %Neutrophils 69.3 % (42.0-75.0); Hemoglobin 12.9 g/dL (12.0-16.0); Mean Corpuscular HGB CONC 30.9 g/dL (32.0-36.0); Mean Corpuscular Hemoglobin 25.4 pg (27.0-31.0); Mean Corpuscular Volume 82.2 fL (78.0-98.0); Mean Platelet Volume 7.4 fL (7.4-10.4); Platelet Count 187 thou/uL (130-400); RBC Distribution Width 14.7 % (11.5-14.5); Red Blood Cell (RBC) Count 5.09 mill/uL (4.20-5.40); White Blood Cell (WBC) Count 5.9 thou/uL (4.8-10.8)
[2021-06-12 09:03] LABS: Prothrombin Time 13.1 sec (12.0-14.7)
[2021-06-12 09:04] LABS: PTT 34.1 sec (22.9-36.1)
[2021-06-12 09:12] LABS: ALT (SGPT) 31 U/L (8-55); AST (SGOT) 26 U/L (5-34); Albumin 3.7 g/dL (3.4-4.8); Alkaline Phosphatase 91 U/L (40-110); Anion Gap 13 mmol/L (10-20); BUN (Urea Nitrogen) 10 mg/dL (9.8-20.1); Bilirubin, Total 0.5 mg/dL (0.2-1.2); Calc. Creatinine Clearance 0 mL/min (70-130); Calcium 9.1 mg/dL (7.8-10.44); Carbon Dioxide 20 mmol/L (23-31); Chloride 113 mmol/L (98-107); Globulin 2.8 g/dL (2.4-3.5); Glucose 94 mg/dL (83-110); Potassium 4.1 mmol/L (3.5-5.1); Protein, Total 6.5 g/dL (5.8-8.1); Sodium 142 mmol/L (136-145)
[2021-06-12 09:50] LABS: Bilirubin Negative (Negative); Blood, Urine Negative (Negative); Clarity Clear (Clear); Glucose, Urine (Dipstick) >=1000 mg/dL (Negative); Ketone, Urine Negative (Negative); Leukocyte Negative (Negative); Nitrite Negative (Negative); Protein, Urine (Dipstick) Negative (Neg-Trace); Specific Gravity, Urine 1.025 (1.005-1.030)
[2021-06-12] MEDS ORDERED: Aspirin Chewable 81 MG TAB ONE (10:39)
[2021-06-12 12:25] LABS: SARS-CoV-2 NAA Rapid Test Not Detected (NotDetected)
== END 2021-06-12 12:10 | disposition short-term general hospital (02) ==
LOC: NAV ERS 07:58
DX: G45.9 Transient cerebral ischemic attack, unspecified (principal); Z20.822 Contact with and (suspected) exposure to COVID-19; Z79.82 Long term (current) use of aspirin; Z79.899 Other long term (current) drug therapy
CPT/HCPCS: 36416; 51701; 70450; 71045; 74176; 80053; 81003; 83605; 84484; 85025; 85610; 85730; 87086; 93005; 36415-59; U0002

== ENCOUNTER 2021-10-27 14:31 | Emergency (ER) | payer MEDICARE ==
[2021-10-27 14:58] LABS: #Basophils 0.1 thou/uL (0.0-0.2); #Lymphocytes 0.7 thou/uL (1.20-3.40); #Monocytes 0.6 thou/uL (0.11-0.59); #Neutrophils 5.7 thou/uL (1.40-6.50); %Basophils 0.9 % (0.0-1.0); %Eosinophils 0.1 % (0.0-10.0); %Lymphocytes 9.9 % (21.0-51.0); %Monocytes 7.9 % (0.0-10.0); %Neutrophils 81.3 % (42.0-75.0); Hemoglobin 12.3 g/dL (12.0-16.0); Mean Corpuscular HGB CONC 29.9 g/dL (32.0-36.0); Mean Corpuscular Hemoglobin 21.8 pg (27.0-31.0); Mean Corpuscular Volume 73.1 fL (78.0-98.0); Mean Platelet Volume 7.7 fL (7.4-10.4); Platelet Count 216 thou/uL (130-400); RBC Distribution Width 15.2 % (11.5-14.5); Red Blood Cell (RBC) Count 5.64 mill/uL (4.20-5.40)
[2021-10-27] MEDS ORDERED: Fentanyl 100 MCG/2 ML VIAL ONE (15:01)
[2021-10-27] MEDS ORDERED: Ondansetron PF 4 MG/2 ML Vial ONE ×2 (15:01→17:15)
[2021-10-27 15:04] LABS: Bilirubin Negative (Negative); Blood, Urine Negative (Negative); Clarity Clear (Clear); Glucose, Urine (Dipstick) 500 mg/dL (Negative); Ketone, Urine 15 mg/dL (Negative); Leukocyte Negative (Negative); Nitrite Negative (Negative); Protein, Urine (Dipstick) Negative (Neg-Trace); Urobilinogen 0.2 mg/dL (Less than 2)
[2021-10-27] MEDS ORDERED: Ondansetron ODT 4 MG TAB ONE (15:33)
[2021-10-27 15:35] LABS: ALT (SGPT) 27 U/L (8-55); AST (SGOT) 29 U/L (5-34); Albumin 4.1 g/dL (3.4-4.8); Alkaline Phosphatase 113 U/L (40-110); Anion Gap 15 mmol/L (10-20); BUN (Urea Nitrogen) 9 mg/dL (9.8-20.1); Bilirubin, Total 0.4 mg/dL (0.2-1.2); Calc. Creatinine Clearance 0 mL/min (70-130); Calcium 8.9 mg/dL (7.8-10.44); Carbon Dioxide 21 mmol/L (23-31); Chloride 107 mmol/L (98-107); Globulin 3.1 g/dL (2.4-3.5); Glucose 90 mg/dL (83-110); Lipase 20 U/L (8-78); Potassium 4.1 mmol/L (3.5-5.1); Protein, Total 7.2 g/dL (5.8-8.1); Sodium 139 mmol/L (136-145)
[2021-10-27] MEDS ORDERED: Cipro 250 MG TAB ONE (17:42)
== END 2021-10-27 19:05 ==
LOC: NAV ERS 14:31
DX: A08.4 Viral intestinal infection, unspecified (principal); Z86.73 Personal history of transient ischemic attack (TIA), and cerebral infarction without residual deficits
CPT/HCPCS: 51701; 74176; 80053; 81003; 83605; 83690; 84484; 85025; 93005; 94760; 96374; 96375; J2405; J3010; Q0162

== ENCOUNTER 2022-02-13 17:44 | Emergency (ER) | payer MEDICARE ==
[~2022-02-13 17:44] MED LIST: Iopamidol 370 76% 100 ML VIAL ONE
[2022-02-13 18:47] LABS: #Eosinphils 0.1 thou/uL (0.0-0.7); #Lymphocytes 1.3 thou/uL (1.20-3.40); #Monocytes 0.5 thou/uL (0.11-0.59); #Neutrophils 5.5 thou/uL (1.40-6.50); %Basophils 0.5 % (0.0-1.0); %Eosinophils 1.4 % (0.0-10.0); %Lymphocytes 17.2 % (21.0-51.0); %Monocytes 6.5 % (0.0-10.0); %Neutrophils 74.5 % (42.0-75.0); Mean Corpuscular HGB CONC 28.9 g/dL (32.0-36.0); Mean Corpuscular Hemoglobin 21.8 pg (27.0-31.0); Mean Corpuscular Volume 75.4 fL (78.0-98.0); Mean Platelet Volume 8.1 fL (7.4-10.4); Platelet Count 221 thou/uL (130-400); RBC Distribution Width 16.4 % (11.5-14.5); White Blood Cell (WBC) Count 7.4 thou/uL (4.8-10.8)
[2022-02-13 18:58] LABS: ALT (SGPT) 18 U/L (8-55); AST (SGOT) 17 U/L (5-34); Albumin 3.8 g/dL (3.4-4.8); Alkaline Phosphatase 77 U/L (40-110); Anion Gap 14 mmol/L (10-20); BUN (Urea Nitrogen) 11 mg/dL (9.8-20.1); Bilirubin, Total 0.4 mg/dL (0.2-1.2); Calc. Creatinine Clearance 0 mL/min (70-130); Calcium 9.1 mg/dL (7.8-10.44); Carbon Dioxide 23 mmol/L (23-31); Chloride 107 mmol/L (98-107); Globulin 2.5 g/dL (2.4-3.5); Glucose 100 mg/dL (83-110); Lipase 37 U/L (8-78); Potassium 4.1 mmol/L (3.5-5.1); Protein, Total 6.3 g/dL (5.8-8.1); Sodium 140 mmol/L (136-145)
[2022-02-13 18:59] LABS: Bilirubin Negative (Negative); Blood, Urine Negative (Negative); Clarity Clear (Clear); Glucose, Urine (Dipstick) >=1000 mg/dL (Negative); Ketone, Urine Negative (Negative); Leukocyte Negative (Negative); Nitrite Negative (Negative); Protein, Urine (Dipstick) Negative (Neg-Trace); Specific Gravity, Urine 1.025 (1.005-1.030)
[2022-02-13] MEDS ORDERED: Ondansetron PF 4 MG/2 ML Vial ONE (21:16)
[2022-02-13] MEDS ORDERED: Pantoprazole 40 MG VIAL ONE (21:16)
[2022-02-13] MEDS ORDERED: Sterile Water 10 ML ONE (21:17)
== END 2022-02-13 22:57 ==
LOC: NAV ERS 17:44
DX: R11.2 Nausea with vomiting, unspecified (principal); R10.84 Generalized abdominal pain; I10 Essential (primary) hypertension; I25.10 Atherosclerotic heart disease of native coronary artery without angina pectoris; G62.9 Polyneuropathy, unspecified; Z86.73 Personal history of transient ischemic attack (TIA), and cerebral infarction without residual deficits; Z86.718 Personal history of other venous thrombosis and embolism; Z79.82 Long term (current) use of aspirin; Z79.899 Other long term (current) drug therapy
CPT/HCPCS: 71045; 74177; 80053; 81003; 83605; 83690; 84484; 85025; 93005; 96374; 96375; C9113; J2405; Q9967

== ENCOUNTER 2022-03-04 12:32 | Emergency (ER) | payer MEDICARE ==
[2022-03-04] MEDS ORDERED: Ondansetron ODT 4 MG TAB ONE (13:08)
== END 2022-03-04 14:50 ==
LOC: NAV ERS 12:32
DX: S80.01XA Contusion of right knee, initial encounter (principal); Z79.899 Other long term (current) drug therapy; X58.XXXA Exposure to other specified factors, initial encounter
CPT/HCPCS: Q0162

== ENCOUNTER 2022-03-11 09:29 | Emergency (ER) | payer MEDICARE | END 2022-03-11 11:05 | disposition home or self-care (01) | LOC: NAV ERS 09:29 | DX: U07.1 COVID-19 (principal); I10 Essential (primary) hypertension; Z79.899 Other long term (current) drug therapy | CPT/HCPCS: 99283 ==

== ENCOUNTER 2024-01-23 10:07 | Outpatient (CLI) | payer MEDICARE ==
[2024-01-23 12:37] LABS: Follow-up Chemistry Comp? YES; Follow-up Result - Chemistry REPORT FAXED
== END 2024-01-23 10:08 | disposition home or self-care (01) ==
LOC: NAV RAD 10:07
PROVIDERS: ATTEND Physical Medicine & Rehabilitation
DX: M25.561 Pain in right knee (principal); M25.551 Pain in right hip; M79.604 Pain in right leg
CPT/HCPCS: 36415

== ENCOUNTER 2024-09-15 14:57 | Emergency (ER) | payer MEDICARE ==
[2024-09-15] MEDS ORDERED: Ketorolac Tromethamine 30 MG (1 mL) VIAL ONE (15:14)
[2024-09-15 15:59] LABS: Bilirubin Small (Negative); Blood, Urine Trace (Negative); Glucose, Urine (Dipstick) 500 mg/dL (Negative); Ketone, Urine Negative (Negative); Leukocyte Negative (Negative); Nitrite Negative (Negative); Protein, Urine (Dipstick) 100 mg/dL (Neg-Trace); Urobilinogen 0.2 mg/dL (Less than 2); pH, Urine 5.5 (5.0-9.0)
[2024-09-15 16:11] LABS: Clarity Hazy (Clear); Specific Gravity, Urine 1.035 (1.002-1.036)
[2024-09-15 16:12] LABS: Bacteria/HPF Rare-Few HPF (None Seen); CAUTI Indications for Culture Pelvic or flank pain; RBC/HPF 0-3 HPF (0-3); Squamous Epithelial 0-3 HPF (0-3)
[2024-09-15 16:14] LABS: Urine Culture Reflex Yes Yes
[2024-09-15] MEDS ORDERED: Nitrofurantoin Monohyd/M-Cryst 100 MG CAP ONE (16:21)
[2024-09-15] MEDS ORDERED: Sodium Chloride 0.9% 1,000 ML ONE (17:29)
[2024-09-15] MEDS ORDERED: Promethazine HCl 25 MG/ML VIAL ONE (17:29)
[2024-09-15 17:38] LABS: #Basophils 0.1 thou/uL (0.0-0.2); #Lymphocytes 1.2 thou/uL (1.20-3.40); #Monocytes 0.4 thou/uL (0.11-0.59); #Neutrophils 7.7 thou/uL (1.40-6.50); %Basophils 0.7 % (0.0-1.0); %Eosinophils 0.4 % (0.0-10.0); %Monocytes 4.6 % (0.0-10.0); %Neutrophils 81.3 % (42.0-75.0); Hematocrit 48.5 % (36.0-47.0); Hemoglobin 14.5 g/dL (12.0-16.0); Mean Corpuscular HGB CONC 29.9 g/dL (32.0-36.0); Mean Corpuscular Hemoglobin 24.8 pg (27.0-31.0); Mean Platelet Volume 8.1 fL (7.4-10.4); Platelet Count 194 10x3/uL (130-400); RBC Distribution Width 13.8 % (11.5-14.5); Red Blood Cell (RBC) Count 5.84 mill/uL (4.20-5.40); White Blood Cell (WBC) Count 9.5 10x3/uL (4.8-10.8)
[2024-09-15 17:46] LABS: ALT (SGPT) 33 U/L (8-55); AST (SGOT) 24 U/L (5-34); Albumin 3.5 g/dL (3.4-4.8); Alkaline Phosphatase 95 U/L (40-110); Anion Gap 15 mmol/L (10-20); BUN (Urea Nitrogen) 15 mg/dL (9.8-20.1); Bilirubin, Total 0.4 mg/dL (0.2-1.2); Calc. Creatinine Clearance 0 mL/min (70-130); Calcium 9.1 mg/dL (7.8-10.44); Carbon Dioxide 19 mmol/L (23-31); Chloride 109 mmol/L (98-107); Estimated GFR 68; Globulin 3.1 g/dL (2.4-3.5); Glucose 97 mg/dL (83-110); Potassium 4.2 mmol/L (3.5-5.1); Protein, Total 6.6 g/dL (5.8-8.1); Sodium 139 mmol/L (136-145)
== END 2024-09-15 18:53 ==
LOC: NAV ERS 14:57
DX: N39.0 Urinary tract infection, site not specified (principal); I25.10 Atherosclerotic heart disease of native coronary artery without angina pectoris; K21.9 Gastro-esophageal reflux disease without esophagitis; E78.00 Pure hypercholesterolemia, unspecified; I11.0 Hypertensive heart disease with heart failure; I50.9 Heart failure, unspecified; Z79.02 Long term (current) use of antithrombotics/antiplatelets; Z79.82 Long term (current) use of aspirin; Z79.899 Other long term (current) drug therapy; Z96.641 Presence of right artificial hip joint
CPT/HCPCS: 80053; 81001; 85025; 87086; 96361; 96365; 96372; J1885; J2550; J7030

== ENCOUNTER 2024-10-16 18:45 | Emergency (ER) | payer MEDICARE ==
[2024-10-16] MEDS ORDERED: Ketorolac Tromethamine 30 MG (1 mL) VIAL ONE (19:02)
== END 2024-10-16 20:22 | disposition home or self-care (01) ==
LOC: NAV ERS 18:45
DX: M54.6 Pain in thoracic spine (principal); I11.0 Hypertensive heart disease with heart failure; I50.9 Heart failure, unspecified; E78.00 Pure hypercholesterolemia, unspecified
CPT/HCPCS: 96372; 99283; J1885

== ENCOUNTER 2025-06-02 09:59 | Emergency (ER) | payer MEDICARE ==
[2025-06-02 11:58] LABS: #Basophils 0.1 thou/uL (0.0-0.2); #Eosinophils 0.2 thou/uL (0.0-0.7); #Lymphocytes 0.9 thou/uL (1.20-3.40); #Monocytes 0.5 thou/uL (0.11-0.59); #Neutrophils 5.6 thou/uL (1.40-6.50); %Basophils 1.0 % (0.0-1.0); %Eosinophils 2.5 % (0.0-10.0); %Lymphocytes 12.3 % (21.0-51.0); %Monocytes 6.3 % (0.0-10.0); %Neutrophils 77.9 % (42.0-75.0); Hematocrit 40.9 % (36.0-47.0); Hemoglobin 13.5 g/dL (12.0-16.0); Mean Corpuscular Hemoglobin 25.3 pg (27.0-31.0); Mean Corpuscular Volume 76.8 fl (78.0-98.0); Platelet Count 202 10x3/uL (130-400); Red Blood Cell (RBC) Count 5.32 mill/uL (4.20-5.40); White Blood Cell (WBC) Count 7.2 10x3/uL (4.8-10.8)
[2025-06-02 12:01] LABS: INR-International Normal Ratio 1.0; Prothrombin Time 13.2 sec (12.0-14.7)
[2025-06-02 12:02] LABS: PTT 37.7 sec (22.9-36.1)
[2025-06-02 12:08] LABS: ALT (SGPT) 53 U/L (Less than 34); AST (SGOT) 46 U/L (11-34); Albumin 3.9 g/dL (3.1-4.5); Alkaline Phosphatase 84 U/L (40-110); Anion Gap 18 mmol/L (10-20); BUN (Urea Nitrogen) 10 mg/dL (9.8-20.1); Bilirubin, Total 0.4 mg/dL (0.3-1.2); Calc. Creatinine Clearance 0 mL/min (70-130); Calcium 9.1 mg/dL (7.8-10.44); Carbon Dioxide 19 mmol/L (23-31); Chloride 109 mmol/L (98-107); Globulin 3.1 g/dL (2.4-3.5); Glucose 98 mg/dL (83-110); Potassium 3.9 mmol/L (3.5-5.1); Sodium 142 mmol/L (136-145)
[2025-06-02 12:09] LABS: Troponin I 0.019 ng/mL (< 0.028)
== END 2025-06-02 16:11 | disposition home or self-care (01) ==
LOC: NAV ERS 09:59
DX: G40.909 Epilepsy, unspecified, not intractable, without status epilepticus (principal); I69.351 Hemiplegia and hemiparesis following cerebral infarction affecting right dominant side; F03.90 Unspecified dementia, unspecified severity, without behavioral disturbance, psychotic disturbance, mood disturbance, and anxiety; I11.0 Hypertensive heart disease with heart failure; I50.9 Heart failure, unspecified; R29.714 NIHSS score 14; I25.10 Atherosclerotic heart disease of native coronary artery without angina pectoris; K21.9 Gastro-esophageal reflux disease without esophagitis; E78.00 Pure hypercholesterolemia, unspecified; Z86.718 Personal history of other venous thrombosis and embolism; Z79.82 Long term (current) use of aspirin; Z79.899 Other long term (current) drug therapy
CPT/HCPCS: 36415; 70450; 80053; 80177; 84484; 85025; 85610; 85730; 93005; 94760

== ENCOUNTER 2025-06-18 18:21 | Emergency (ER) | payer MEDICARE | END 2025-06-18 19:55 | disposition home or self-care (01) | LOC: NAV ERS 18:21 | DX: M54.6 Pain in thoracic spine (principal); G89.29 Other chronic pain; I25.10 Atherosclerotic heart disease of native coronary artery without angina pectoris; I11.0 Hypertensive heart disease with heart failure; I50.9 Heart failure, unspecified; Z86.73 Personal history of transient ischemic attack (TIA), and cerebral infarction without residual deficits; Z79.899 Other long term (current) drug therapy; Z79.82 Long term (current) use of aspirin; Z86.718 Personal history of other venous thrombosis and embolism | CPT/HCPCS: 96372; 99283; J1885 ==

== ENCOUNTER 2025-07-07 22:54 | Emergency (ER) | payer MEDICARE | END 2025-07-08 00:42 | disposition home or self-care (01) | LOC: NAV ERS 22:54 | DX: M54.50 Low back pain, unspecified (principal); F03.90 Unspecified dementia, unspecified severity, without behavioral disturbance, psychotic disturbance, mood disturbance, and anxiety; I11.0 Hypertensive heart disease with heart failure; I50.9 Heart failure, unspecified; E11.9 Type 2 diabetes mellitus without complications; I25.2 Old myocardial infarction; I25.10 Atherosclerotic heart disease of native coronary artery without angina pectoris | CPT/HCPCS: 99283 ==